=== PATIENT | female | born 1940 | race Caucasian/White ===

== ENCOUNTER 2019-02-12 07:28 | Emergency (ER) | payer MEDICARE, BC ==
[2019-02-12 07:58] LABS: #Lymphocytes 1.2 thou/uL (1.20-3.40); #Monocytes 0.7 thou/uL (0.11-0.59); #Neutrophils 8.1 thou/uL (1.40-6.50); %Basophils 0.1 % (0.0-1.0); %Eosinophils 0.2 % (0.0-10.0); %Lymphocytes 12.1 % (21.0-51.0); %Monocytes 6.5 % (0.0-10.0); %Neutrophils 81.1 % (42.0-75.0); Hemoglobin 12.4 g/dL (12.0-16.0); Mean Corpuscular Hemoglobin 31.2 pg (27.0-31.0); Mean Corpuscular Volume 91.7 fL (78.0-98.0); Platelet Count 213 thou/uL (130-400); RBC Distribution Width 11.4 % (11.5-14.5); Red Blood Cell (RBC) Count 3.97 mill/uL (4.20-5.40)
[2019-02-12 08:32] LABS: ALT (SGPT) 22 U/L (8-55); AST (SGOT) 23 U/L (5-34); Albumin 4.2 g/dL (3.4-4.8); Alkaline Phosphatase 86 U/L (40-150); Anion Gap 13 mmol/L (10-20); BUN (Urea Nitrogen) 29 mg/dL (9.8-20.1); Bilirubin, Total 0.4 mg/dL (0.2-1.2); Calc. Creatinine Clearance 0 mL/min (70-130); Calcium 9.8 mg/dL (7.8-10.44); Carbon Dioxide 23 mmol/L (23-31); Chloride 107 mmol/L (98-107); Estimated GFR-MDRD 40; Globulin 2.4 g/dL (2.4-3.5); Glucose 137 mg/dL (83-110); Potassium 3.9 mmol/L (3.5-5.1); Protein, Total 6.6 g/dL (6.0-8.3); Sodium 139 mmol/L (136-145)
[2019-02-12] MEDS ORDERED: ISOVUE-370 76%-LOCM 1 ML ONE (09:30)
--- NOTE | 2019-02-12 09:30 | CT ---
EXAM: CT abdomen and pelvis with IV contrast PROVIDED CLINICAL HISTORY: Abdominal pain COMPARISON: 09/07/2014 FINDINGS: Visualized lung bases are free of significant opacity. Moderate hiatal hernia is redemonstrated. The solid abdominal organs demonstrate no acute abnormality. There is diffuse mural thickening involving the descending and sigmoid colon with fat stranding surro unding the majority of the sigmoid colon. There is trace mesenteric fluid. There is no evidence for extraluminal gas or an extraluminal fluid collection. Sigmoid colonic diverticula are also seen. Scattered vascular calcifications are noted. No evidence for bowel obstruction, free air or lymph nod e enlargement. The osseous structures demonstrate no concerning osteoblastic or osteolytic lesions. Lumbar spine deg enerative changes are seen. IMPRESSION: Descending and sigmoid colitis. Infectious, inflammatory and ischemic etiologies could be considered.
[2019-02-12] MEDS ORDERED: methylPREDNISolone Sod Succ/PF 125 MG/2 ML VIAL ONE (09:50)
== END 2019-02-12 10:42 | disposition home or self-care (01) ==
LOC: ERS 07:28
DX: K52.9 Noninfective gastroenteritis and colitis, unspecified (principal); E11.9 Type 2 diabetes mellitus without complications; E78.5 Hyperlipidemia, unspecified; I10 Essential (primary) hypertension; Z79.82 Long term (current) use of aspirin; Z79.899 Other long term (current) drug therapy
CPT/HCPCS: 36415; 74177; 80053; 82274; 83690; 85025; 96361; 96374; J2930

== ENCOUNTER 2019-04-13 10:12 | Outpatient (CLI) | payer MEDICARE, BC ==
--- NOTE | 2019-04-13 11:19 | CT ---
CTA Angio Abd Pelvis W WO Con History: K 55.9 ischemic colitis. Kidney 58.0. Irritable bowel disease Comparison: CT abdomen and pelvis February 12, 2019 Findings: Lung bases are clear. Mild scarring. Large sliding hiatal hernia. On the noncontrast portion of the examination there is no nephroureterolithiasis. The liver spleen pancreas unremarkable. No hydronephrosis. Bilateral parapelvic renal cysts. No hydroureter. There is suture at the craniad aspect of the rectum at the rectosigmoid junction. Mild thickening of the left pelvic sidewall could be posttreatment in nature The previously described colitis has resolved. No dilated loops of large or small bowel. The appendix is visualized and is normal. 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 There is approximately 80% stenosis for length of 4 mm. The splenic artery is patent. Left gastric artery is patent. Common hepatic artery and proper hepatic arteries ar e patent. The superior mesenteric artery is patent. Distal branches of the superior mesenteric artery are paten t. The inferior mesenteric artery is patent as well as the distal branches to the sigmoid. The renal arteries are patent. No aneurysmal dilatation of the aorta. Severe degenerative facet arthropathy at L4/L5 with subsequent grade 1 anterolisthesis. No intramural hematoma the aorta. The liver, spleen, pancreas, adrenal glands are unremarkable. No dilated loops of large or small ros l. Impression: 1. Patent superior mesenteric artery and distal branches. 2. Patent inferior mesenteric artery and distal branches. 3. 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 4. Interval resolution of colitis.
== END 2019-04-13 10:13 | disposition home or self-care (01) ==
LOC: BICCT 10:12
PROVIDERS: ATTEND Internal Medicine Gastroenterology
DX: K55.9 Vascular disorder of intestine, unspecified (principal); K58.0 Irritable bowel syndrome with diarrhea; K21.9 Gastro-esophageal reflux disease without esophagitis; I77.4 Celiac artery compression syndrome; I70.8 Atherosclerosis of other arteries
CPT/HCPCS: 74174; 82565

== ENCOUNTER 2020-11-15 23:08 | Emergency (ER) | payer MEDICARE, BC ==
--- NOTE | 2020-11-15 23:35 | RAD ---
XR Chest 1 View Portable HISTORY: Headache, hypertension COMPARISON: 10/13/2018 FINDINGS: The heart size is normal. The lungs are well expanded without focal areas of consolidation, pneumothorax or pleural effusions. A moderate-sized hiatal hernia is present. IMPRESSION: No radiographic evidence of acute cardiopulmonary process.
[2020-11-15 23:42] LABS: #Eosinphils 0.1 thou/uL (0.0-0.7); #Lymphocytes 1.5 thou/uL (1.20-3.40); #Monocytes 0.4 thou/uL (0.11-0.59); #Neutrophils 2.2 thou/uL (1.40-6.50); %Eosinophils 2.9 % (0.0-10.0); %Lymphocytes 35.2 % (21.0-51.0); %Monocytes 9.5 % (0.0-10.0); %Neutrophils 52.3 % (42.0-75.0); Hemoglobin 12.4 g/dL (12.0-16.0); Mean Corpuscular HGB CONC 35.2 g/dL (32.0-36.0); Mean Corpuscular Hemoglobin 33.9 pg (27.0-31.0); Mean Corpuscular Volume 96.2 fL (78.0-98.0); Mean Platelet Volume 8.1 fL (7.4-10.4); Platelet Count 163 thou/uL (130-400); RBC Distribution Width 11.7 % (11.5-14.5); Red Blood Cell (RBC) Count 3.66 mill/uL (4.20-5.40); White Blood Cell (WBC) Count 4.2 thou/uL (4.8-10.8)
[2020-11-15 23:59] LABS: ALT (SGPT) 11 U/L (8-55); AST (SGOT) 16 U/L (5-34); Albumin 4.1 g/dL (3.4-4.8); Alkaline Phosphatase 86 U/L (40-110); Anion Gap 15 mmol/L (10-20); BUN (Urea Nitrogen) 18 mg/dL (9.8-20.1); Bilirubin, Total 0.3 mg/dL (0.2-1.2); CK (CPK) 120 U/L (29-168); Calc. Creatinine Clearance 0 mL/min (70-130); Calcium 9.1 mg/dL (7.8-10.44); Carbon Dioxide 26 mmol/L (23-31); Chloride 106 mmol/L (98-107); Globulin 2.9 g/dL (2.4-3.5); Glucose 149 mg/dL (83-110); Lipase 58 U/L (8-78); Potassium 3.6 mmol/L (3.5-5.1); Sodium 143 mmol/L (136-145)
--- NOTE | 2020-12-07 21:00 | EKG ---
Test Reason : Blood Pressure : / mmHG Vent. Rate : 082 BPM Atrial Rate : 082 BPM P-R Int : 198 ms QRS Dur : 080 ms QT Int : 374 ms P-R-T Axes : 044 029 -02 degrees QTc Int : 436 ms Normal sinus rhythm Normal ECG Confirmed by GENEVA BURKS ([id number]), international editorial producer ELENA MISHRA ([id number]) on 12/07/2020 9:00:09 PM Referred By: Confirmed By:GENEVA BURKS
== END 2020-11-16 01:04 | disposition home or self-care (01) ==
LOC: ERS 23:08
DX: I10 Essential (primary) hypertension (principal); E11.9 Type 2 diabetes mellitus without complications; E78.5 Hyperlipidemia, unspecified; E78.00 Pure hypercholesterolemia, unspecified
CPT/HCPCS: 36415; 71045; 80053; 82550; 83690; 84484; 85025; 93005

== ENCOUNTER 2022-11-19 14:15 | Outpatient (CLI) | payer MEDICARE, BC | END 2022-11-19 14:16 | disposition home or self-care (01) | LOC: BICMAMMO 14:15 | PROVIDERS: ATTEND Family Medicine | DX: Z12.31 Encounter for screening mammogram for malignant neoplasm of breast (principal) | CPT/HCPCS: 77063; 77067 ==

== ENCOUNTER 2023-04-13 09:18 | Outpatient (CLI) | payer MEDICARE, BC | END 2023-04-13 09:19 | disposition home or self-care (01) | LOC: BICRAD 09:18 | PROVIDERS: ATTEND Family Medicine | DX: M95.8 Other specified acquired deformities of musculoskeletal system (principal); M19.011 Primary osteoarthritis, right shoulder | CPT/HCPCS: 36415; 80053; 80061; 83036; 84443; 85025 ==

== ENCOUNTER 2023-04-20 12:54 | Outpatient (CLI) | payer MEDICARE, BC | END 2023-04-20 12:55 | disposition home or self-care (01) | LOC: RAD 12:54 | PROVIDERS: ATTEND Physician Assistant Medical | DX: R07.89 Other chest pain (principal); K21.9 Gastro-esophageal reflux disease without esophagitis; K44.9 Diaphragmatic hernia without obstruction or gangrene; R13.10 Dysphagia, unspecified | CPT/HCPCS: 74220 ==

== ENCOUNTER 2023-06-04 12:16 | Outpatient (CLI) | payer MEDICARE, BC | END 2023-06-04 12:17 | disposition home or self-care (01) | LOC: RAD 12:16 | PROVIDERS: ATTEND Nurse Practitioner Family | DX: R06.02 Shortness of breath (principal) | CPT/HCPCS: 71046 ==

== ENCOUNTER 2023-07-20 07:00 | Outpatient (CLI) | payer MEDICARE, BC | END 2023-07-20 07:01 | disposition home or self-care (01) | LOC: BICULT 07:00 | PROVIDERS: ATTEND Physician Assistant Medical | DX: D13.1 Benign neoplasm of stomach (principal); R10.13 Epigastric pain; K44.9 Diaphragmatic hernia without obstruction or gangrene | CPT/HCPCS: 76700 ==

== ENCOUNTER 2023-08-24 09:20 | Outpatient (CLI) | payer MEDICARE, BC ==
[2023-08-24 10:56] LABS: #Eosinphils 0.1 10x3/uL (0.0-0.5); #Monocytes 0.3 10x3/uL (0.0-1.1); #Neutrophils 2.2 10x3/uL (1.5-8.4); %Basophils 0.7 % (0.0-2.0); %Eosinophils 2.7 % (0.0-6.0); %Lymphocytes 35.9 % (18.0-47.0); %Monocytes 6.9 % (0.0-10.0); %Neutrophils 53.3 % (40.0-75.0); Hematocrit 37.8 % (34.9-44.5); Hemoglobin 12.4 g/dL (12.0-15.5); Mean Corpuscular HGB CONC 32.8 g/dL (32.0-36.0); Mean Corpuscular Hemoglobin 31.4 pg (27.0-33.0); Mean Corpuscular Volume 95.7 fl (81.6-98.3); Mean Platelet Volume 10.4 fl (7.4-10.4); Platelet Count 212 10x3/uL (150-450); RBC Distribution Width 12.3 % (11.5-14.5); Red Blood Cell (RBC) Count 3.95 10x6/uL (3.90-5.03)
[2023-08-24 11:08] LABS: Anion Gap 15 mmol/L (10-20); BUN (Urea Nitrogen) 25 mg/dL (9.8-20.1); Calc. Creatinine Clearance 0 mL/min (70-130); Calcium 9.5 mg/dL (7.8-10.44); Carbon Dioxide 25 mmol/L (23-31); Chloride 108 mmol/L (98-107); Estimated GFR 62; Glucose 129 mg/dL (83-110); Potassium 4.4 mmol/L (3.5-5.1); Sodium 144 mmol/L (136-145)
== END 2023-08-24 09:21 | disposition home or self-care (01) ==
LOC: LABBT 09:20
PROVIDERS: ATTEND Surgery
DX: Z01.812 Encounter for preprocedural laboratory examination (principal); K44.9 Diaphragmatic hernia without obstruction or gangrene
CPT/HCPCS: 80048; 85025

== ENCOUNTER 2024-04-11 12:44 | Outpatient (CLI) | payer MEDICARE ==
[2024-04-11] MEDS ORDERED: Barium Sulfate 96% 176 GM BOT (xray ONLY) ONE (12:57)
[2024-04-11] MEDS ORDERED: E-Z-HD 98% W/W 340GM BOT (x-ray ONLY) ONE (12:57)
== END 2024-04-11 12:45 | disposition home or self-care (01) ==
LOC: RAD 12:44
PROVIDERS: ATTEND Physician Assistant Medical
DX: R13.14 Dysphagia, pharyngoesophageal phase (principal); Z98.890 Other specified postprocedural states
CPT/HCPCS: 74220